=== PATIENT | male | born 1960 | race Caucasian/White ===

== ENCOUNTER → 2019-05-09 | Outpatient (CLI) | payer OTHER | END | disposition home or self-care (01) | LOC: LAB 14:45 → LAB SHORT 14:45 | DX: J32.8 Other chronic sinusitis (principal); M86.68 Other chronic osteomyelitis, other site | CPT/HCPCS: 87070; 87075; 87076; 87185; 87205 ==

== ENCOUNTER → 2019-11-12 | Outpatient (CLI) | payer OTHER ==
[2019-11-12 12:50] LABS: Hematocrit 43.1 % (37.0-53.0); Mean Corpuscular HGB 31.3 pg (26.0-34.0); Mean Corpuscular HGB Conc 32.5 g/dL (31.5-36.5); Mean Corpuscular Volume 96 fL (80-100); Mean Platelet Volume 9.8 fL (9.1-12.4); Platelet Count 282 K/mm3 (150-400); RDW Coefficient Variation 13.6 % (11.7-14.2); RDW Standard Deviation 48.5 fL (35.1-46.3); Red Blood Cell Count 4.47 M/mm3 (4.30-5.90)
[2019-11-12 13:05] LABS: Alanine Aminotransfer (ALT/SGP 35 U/L (12-78); Albumin, Blood 3.8 g/dL (3.4-5.0); Albumin/Globulin Ratio 1.1 (0.8-1.8); Alk Phos 216 U/L (50-136); Anion Gap 5 mmol/L (6-16); Aspartate Aminotrans (AST/SGOT 23 U/L (12-37); Bilirubin, Total 0.3 mg/dL (0.1-1.0); Blood Urea Nitrogen 11 mg/dL (8-24); Bun/Creatinine Ratio 13.6 (12.0-20.0); C-REACTIVE PROTEIN, EXT RANGE <0.290 mg/dL (0.000-0.300); CO2, Blood 28 mmol/L (21-32); Chloride, Blood 105 mmol/L (98-108); Creatinine, Blood 0.81 mg/dL (0.60-1.20); Globulin, Blood 3.6 g/dL (2.2-4.0); Glomerular Filtration Rate >60 (60-); Glucose, Blood 110 mg/dL (70-99); Potassium, Blood 3.6 mmol/L (3.5-5.5); Sodium, Blood 138 mmol/L (136-145); Total Protein, Blood 7.4 g/dL (6.4-8.2)
== END | disposition home or self-care (01) ==
LOC: LAB SHORT 12:35 → LAB 12:35
PROVIDERS: Family Medicine
DX: Z48.813 Encounter for surgical aftercare following surgery on the respiratory system (principal); J34.1 Cyst and mucocele of nose and nasal sinus; B96.89 Other specified bacterial agents as the cause of diseases classified elsewhere
CPT/HCPCS: 80053; 85027; 86140

== ENCOUNTER 2020-02-28 10:57 | Day surgery (SDC) | payer OTHER ==
[~2020-02-28] VITALS: Ht 188 cm; Wt 113.9 kg
[~2020-02-28 10:57] MED LIST: BUPR150ER PO; GABA300 PO; LISINOPRIL-HCT1 EACH PO; ROSU10TA PO
[2020-02-28] MEDS ORDERED: AMOX875 (11:20)
--- NOTE | 2020-02-28 12:08 | NUR ---
02/28/[address] CONSULTED ABOUT LOW HR. 12- LEAD EKG ORDER. DR CORONEL READ EKG, OK TO PROCEED PER DR. CORONEL. V.O FOR 0.2 MG IV ROBINUL PRIOR TO PROCEDURE START. DR. DUARTE NOTIFIED. BOTH EZEKIEL OK TO PROCEED.
--- NOTE | 2020-02-28 13:15 | NUR ---
02/28/20 [address] CONNORS PT MOVED FROM LEFT LATERAL SIDE TO SUPINE THEN BACK TO LEFT LATERAL. VSS T/O.
== END 2020-02-28 14:30 | disposition home or self-care (01) ==
LOC: ORSCSDS 10:57
PROVIDERS: Internal Medicine Gastroenterology
PROC: 0DBM8ZX Excision of Descending Colon, Via Natural or Artificial Opening Endoscopic, Diagnostic (ICD-10-PCS; principal; 2020-02-28 13:00)
PROC: 0DBL8ZX Excision of Transverse Colon, Via Natural or Artificial Opening Endoscopic, Diagnostic (ICD-10-PCS; principal; 2020-02-28 13:00)
PROC: 0DBK8ZX Excision of Ascending Colon, Via Natural or Artificial Opening Endoscopic, Diagnostic (ICD-10-PCS; principal; 2020-02-28 13:00)
PROC: 0DBH8ZX Excision of Cecum, Via Natural or Artificial Opening Endoscopic, Diagnostic (ICD-10-PCS; principal; 2020-02-28 13:00)
DX: Z12.11 Encounter for screening for malignant neoplasm of colon (principal); D12.3 Benign neoplasm of transverse colon; D12.4 Benign neoplasm of descending colon; D12.0 Benign neoplasm of cecum; K57.30 Diverticulosis of large intestine without perforation or abscess without bleeding; K64.8 Other hemorrhoids; I10 Essential (primary) hypertension; F32.9 Major depressive disorder, single episode, unspecified; Z79.899 Other long term (current) drug therapy
CPT/HCPCS: 88305; 93005; 93010; J2704; J7040; J7120

== ENCOUNTER → 2020-08-17 | Outpatient (CLI) | payer OTHER ==
[~2020-08-17] MED LIST changes: +AMOX875
== END | disposition home or self-care (01) ==
LOC: LAB SHORT 12:49
DX: M79.672 Pain in left foot (principal)
CPT/HCPCS: 84550

== ENCOUNTER → 2022-08-26 | Outpatient (CLI) | payer OTHER ==
[~2022-08-26] MED LIST changes: +ALBU90OI; +ALLO100; +INDO50; +Tessalon200 MG
== END | disposition home or self-care (01) ==
LOC: LAB 13:20 → LAB SHORT 13:20
DX: D22.39 Melanocytic nevi of other parts of face (principal); L81.9 Disorder of pigmentation, unspecified
CPT/HCPCS: 88305

== ENCOUNTER → 2024-04-06 | Outpatient (CLI) | payer OTHER ==
[2024-04-06 10:52] LABS: BASOPHILS ABSOLUTE AUTO 0.04 K/mm3 (0.00-0.23); BASOPHILS PERCENT AUTO 0 % (0-2); EOSINOPHILS ABSOLUTE AUTO 0.26 K/mm3 (0.00-0.68); EOSINOPHILS PERCENT AUTO 1 % (0-6); Hematocrit 32.1 % (37.0-53.0); IMMATURE GRAN ABSOLUTE AUTO 0.17 K/mm3 (0.00-0.10); IMMATURE GRAN PERCENT AUTO 1 % (0-1); LYMPHOCYTES ABSOLUTE AUTO 0.32 K/mm3 (0.84-5.20); LYMPHOCYTES PERCENT AUTO 2 % (21-46); MONOCYTES PERCENT AUTO 1 % (4-13); Mean Corpuscular HGB 29.9 pg (26.0-34.0); Mean Corpuscular HGB Conc 34.3 g/dL (31.5-36.5); Mean Corpuscular Volume 87 fL (80-100); Mean Platelet Volume 8.9 fL (9.1-12.4); NEUTROPHILS ABSOLUTE AUTO 17.39 K/mm3 (1.96-9.15); NEUTROPHILS PERCENT AUTO 95 % (41-73); Platelet Count 388 K/mm3 (150-400); RDW Coefficient Variation 13.1 % (11.7-14.2); RDW Standard Deviation 41.1 fL (35.1-46.3); Red Blood Cell Count 3.68 M/mm3 (4.30-5.90); White Blood Cell Count 18.28 K/mm3 (4.00-11.30)
[2024-04-06 11:03] LABS: Albumin, Blood 2.3 g/dL (3.4-5.0); Albumin/Globulin Ratio 0.5 (0.8-1.8); Bilirubin, Total 1.1 mg/dL (0.1-1.0); Bun/Creatinine Ratio 21.1 (12.0-20.0); Calcium, Blood 8.4 mg/dL (8.5-10.1); Creatinine, Blood 1.23 mg/dL (0.60-1.20); Globulin, Blood 4.4 g/dL (2.2-4.0); Potassium, Blood 4.1 mmol/L (3.5-5.5); Total Protein, Blood 6.7 g/dL (6.4-8.2)
[2024-04-06 11:25] LABS: BAND PERCENT MAN 12 % (0-8); EOSINOPHILS ABSOLUTE MAN 0.18 K/mm3 (0.00-0.68); EOSINOPHILS PERCENT MAN 1 % (0-6); LYMPHOCYTES ABSOLUTE MAN 0.18 K/mm3 (0.84-5.20); LYMPHOCYTES PERCENT MAN 1 % (21-46); MONOCYTES ABSOLUTE MAN 0.18 K/mm3 (0.16-1.47); MONOCYTES PERCENT MAN 1 % (4-13); NEUTROPHILS ABSOLUTE MAN 17.73 K/mm3 (1.96-9.15); SEG NEUTROPHILS PERCENT MAN 85 % (41-73)
== END | disposition home or self-care (01) ==
LOC: LAB 10:46 → LAB SHORT 10:46
PROVIDERS: Chiropractor
DX: J40 Bronchitis, not specified as acute or chronic (principal)
CPT/HCPCS: 80053; 83735; 84484; 85025

== ENCOUNTER → 2024-04-07 | Outpatient (CLI) | payer OTHER ==
[2024-04-07 10:59] LABS: BASOPHILS ABSOLUTE AUTO 0.02 K/mm3 (0.00-0.23); BASOPHILS PERCENT AUTO 0 % (0-2); EOSINOPHILS PERCENT AUTO 2 % (0-6); Hematocrit 34.4 % (37.0-53.0); Hemoglobin 11.5 g/dL (13.5-17.5); IMMATURE GRAN ABSOLUTE AUTO 0.09 K/mm3 (0.00-0.10); IMMATURE GRAN PERCENT AUTO 1 % (0-1); LYMPHOCYTES ABSOLUTE AUTO 0.38 K/mm3 (0.84-5.20); LYMPHOCYTES PERCENT AUTO 5 % (21-46); MONOCYTES ABSOLUTE AUTO 0.18 K/mm3 (0.16-1.47); MONOCYTES PERCENT AUTO 2 % (4-13); Mean Corpuscular HGB 29.6 pg (26.0-34.0); Mean Corpuscular HGB Conc 33.4 g/dL (31.5-36.5); Mean Corpuscular Volume 88 fL (80-100); Mean Platelet Volume 8.5 fL (9.1-12.4); NEUTROPHILS ABSOLUTE AUTO 7.65 K/mm3 (1.96-9.15); NEUTROPHILS PERCENT AUTO 90 % (41-73); Platelet Count 373 K/mm3 (150-400); RDW Coefficient Variation 13.2 % (11.7-14.2); RDW Standard Deviation 42.4 fL (35.1-46.3); Red Blood Cell Count 3.89 M/mm3 (4.30-5.90); White Blood Cell Count 8.52 K/mm3 (4.00-11.30)
[2024-04-07 11:11] LABS: Albumin, Blood 2.4 g/dL (3.4-5.0); Albumin/Globulin Ratio 0.5 (0.8-1.8); Bilirubin, Total 0.8 mg/dL (0.1-1.0); Bun/Creatinine Ratio 17.9 (12.0-20.0); Calcium, Blood 8.1 mg/dL (8.5-10.1); Creatinine, Blood 1.23 mg/dL (0.60-1.20); Globulin, Blood 4.6 g/dL (2.2-4.0)
[2024-04-08 09:25] LABS: TOTAL CELLS COUNTED 100
== END ==
LOC: LAB SHORT 10:55 → LAB 10:55
PROVIDERS: Physician Assistant Surgical
DX: J18.9 Pneumonia, unspecified organism (principal)
CPT/HCPCS: 80053; 85025

== ENCOUNTER 2024-05-21 08:04 | Day surgery (SDC) | payer OTHER ==
[~2024-05-21] VITALS: Ht 188 cm; Wt 113.5 kg
[2024-05-21] VITALS (9 sets, daily range): BP systolic 95–117; BP diastolic 54–77
[~2024-05-21 08:04] MED LIST changes: -ALBU90OI; +ALBU90OI INH; -ALLO100; +ALLO100 PO; +BENZ100A PO; +BREYNA 80-4.510.3 GM INH; -BUPR150ER PO; +Budeprion Xl300 MG PO; +Carbamazepine200 MG PO; +CeFAZolin Sodium 2,000 MG in NS 100 ML IV SCH; -INDO50; +INDO50 PO; +LOSARTAN-HCTZ1 EACH PO; +Lactated Ringer's 1,000 ML IV SCH; +OMEP20ER PO; +PARO10 PO; +TAMS.4ER PO; -Tessalon200 MG; +VERA80 PO
[2024-05-21] MEDS ORDERED: FentaNYL Citrate 50 MCG/ML 2 ML Injection ONE (08:11)
[2024-05-21] MEDS ORDERED: Midazolam HCl 1MG / ML 2ML Vial ONE (08:11)
[2024-05-21] MEDS ORDERED: propofoL 20 ML IV ONE ×3 (08:11→08:41)
[2024-05-21] MEDS ORDERED: Bupivacaine 0.5% HCl 5 MG/ML 30MLVIAL ONE (08:29)
[2024-05-21] MEDS ORDERED: Lidocaine HCl 1% 30 ML SDV ONE (08:30)
[2024-05-21] MEDS ORDERED: Metoclopramide HCl 5MG / ML 2ML Vial ONE (09:22)
[2024-05-21] MEDS ORDERED: Dexamethasone Sod Phos 10 MG/ML 1ML VIAL ONE (09:22)
[2024-05-21] MEDS ORDERED: Ondansetron HCl 2 MG / ML 2ML Vial ONE (09:22)
[2024-05-21] MEDS ORDERED: HYDROcodone 5-APAP 325 TAB PO PRN (10:00)
--- NOTE | 2024-05-21 11:10 | NUR ---
DISCHARGE NOTE PT A&OX4, BREATHING 2LO2 VIA NC AT BASELINE, NO COMPLAINTS. PT TOLERATING PO FLUIDS AND FOOD. ICE PACK TO INCISIONS. Discharge instructions reviewed with patient. Patient verbalizes understanding. Copy given to patient to take home. Discharge instructions reviewed with patient. Patient verbalizes understanding. Copy given to patient to take home.VSS. Dressing to procedure site clean, dry, intact with no visible drainage, swelling, erythema or bruising noted.PT AWAITING RESULTS FROM BLOOD DRAW.
== END 2024-05-21 11:00 | disposition home or self-care (01) ==
LOC: ORSCMMR 08:04 → ORD 09:00 → ORSCMMR 11:00
PROVIDERS: Surgery
PROC: B543ZZA Ultrasonography of Right Jugular Veins, Guidance (ICD-10-PCS; principal; 2024-05-21 09:00)
PROC: 05HM33Z Insertion of Infusion Device into Right Internal Jugular Vein, Percutaneous Approach (ICD-10-PCS; principal; 2024-05-21 09:00)
PROC: 0JH63WZ Insertion of Totally Implantable Vascular Access Device into Chest Subcutaneous Tissue and Fascia, Percutaneous Approach (ICD-10-PCS; principal; 2024-05-21 09:00)
DX: C65.2 Malignant neoplasm of left renal pelvis (principal); D75.1 Secondary polycythemia; I10 Essential (primary) hypertension; E78.5 Hyperlipidemia, unspecified; J44.9 Chronic obstructive pulmonary disease, unspecified; K21.9 Gastro-esophageal reflux disease without esophagitis; F41.9 Anxiety disorder, unspecified; E66.9 Obesity, unspecified; Z68.32 Body mass index [BMI] 32.0-32.9, adult; Z79.899 Other long term (current) drug therapy
CPT/HCPCS: 77001; A9270; C1788; J0690; J1100; J1642; J2250; J2405; J2704; J2765; J3010; J7120

== ENCOUNTER 2024-06-04 13:22 | Emergency (ER) | payer OTHER ==
[~2024-06-04] VITALS: Ht 188 cm; Wt 108.9 kg
[~2024-06-04 13:22] MED LIST changes: -CeFAZolin Sodium 2,000 MG in NS 100 ML IV SCH; -Lactated Ringer's 1,000 ML IV SCH
[2024-06-04 15:30] VITALS: BP 102/74
[2024-06-04] MEDS ORDERED: Morphine Sulfate 4 MG/1 ML Injection IM ONE (16:10)
[2024-06-04] MEDS ORDERED: Lidocaine 4% 1 Patch TOP ONE (16:10)
[2024-06-04] MEDS ORDERED: Acetaminophen 500 MG Tab PO ONE (16:10)
[2024-06-04] MEDS ORDERED: Ketorolac Tromethamine 15mg Vial IM ONE (16:10)
[2024-06-04] MEDS ORDERED: LIDO700A20 TOP (16:48)
[2024-06-04] MEDS ORDERED: ACET500 PO (16:48)
[2024-06-04] MEDS ORDERED: IBUP600 PO (16:48)
[2024-06-04] MEDS ORDERED: OXYACE7.5T PO (16:48)
== END 2024-06-04 17:23 | disposition home or self-care (01) ==
LOC: ER 13:22
DX: S22.32XA Fracture of one rib, left side, initial encounter for closed fracture (principal); C78.00 Secondary malignant neoplasm of unspecified lung; I10 Essential (primary) hypertension; Z87.891 Personal history of nicotine dependence; Z79.899 Other long term (current) drug therapy; Z99.81 Dependence on supplemental oxygen; W19.XXXA Unspecified fall, initial encounter
CPT/HCPCS: 71101; 96372; 99284-25; A9270; J1885; J2270

== ENCOUNTER 2024-06-25 22:23 | Observation (INO) | payer OTHER ==
[~2024-06-25] VITALS: Ht 182.9 cm; Wt 113.4 kg
[~2024-06-25 22:23] MED LIST changes: +ACET500 PO; +IBUP600 PO; +LIDO700A20 TOP; +OXYACE7.5T PO
[2024-06-25 22:52] LABS: PCO2 Arterial 30.3 mmHg (35-45); PO2 Arterial 55.4 mmHg (80-100); pH Blood Arterial 7.54 (7.35-7.45)
[2024-06-25] MEDS ORDERED: Ondansetron HCl 2 MG / ML 2ML Vial ONE (22:52)
[2024-06-25] MEDS ORDERED: NS 1,000 ML IV ONE (22:52)
[2024-06-25 23:00] LABS: Hematocrit 26.9 % (37.0-53.0); Hemoglobin 8.9 g/dL (13.5-17.5); Mean Corpuscular HGB Conc 33.1 g/dL (31.5-36.5); Mean Corpuscular Volume 91 fL (80-100); Mean Platelet Volume 9.3 fL (9.1-12.4); Platelet Count 314 K/mm3 (150-400); RDW Coefficient Variation 17.3 % (11.7-14.2); RDW Standard Deviation 57.1 fL (35.1-46.3); Red Blood Cell Count 2.97 M/mm3 (4.30-5.90); White Blood Cell Count 40.37 K/mm3 (4.00-11.30)
[2024-06-25] MEDS ORDERED: FentaNYL Citrate 50 MCG/ML 2 ML Injection IV ONE (23:00)
[2024-06-25] MEDS ORDERED: NS 1,000 ML IV SCH (23:00)
[2024-06-25] MEDS ORDERED: Ondansetron HCl 2 MG / ML 2ML Vial IV ONE (23:00)
[2024-06-25 23:24] LABS: Albumin, Blood 1.4 g/dL (3.4-5.0); Albumin/Globulin Ratio 0.4 (0.8-1.8); Bilirubin, Total 0.7 mg/dL (0.1-1.0); Bun/Creatinine Ratio 29.2 (12.0-20.0); Calcium, Blood 9.6 mg/dL (8.5-10.1); Creatinine, Blood 0.89 mg/dL (0.60-1.20); Globulin, Blood 3.4 g/dL (2.2-4.0); Magnesium, Blood 1.2 mg/dL (1.6-2.4); Potassium, Blood 3.8 mmol/L (3.5-5.5); Total Protein, Blood 4.8 g/dL (6.4-8.2)
[2024-06-25 23:33] LABS: BAND PERCENT MAN 6 % (0-8); BASOPHILS PERCENT MAN 0 % (0-2); EOSINOPHILS PERCENT MAN 1 % (0-6); LYMPHOCYTES PERCENT MAN 2 % (21-46); MONOCYTES ABSOLUTE MAN 2.01 K/mm3 (0.16-1.47); MONOCYTES PERCENT MAN 5 % (4-13); MYELOCYTE PERCENT MAN 1 % (0-0); NEUTROPHILS ABSOLUTE MAN 36.73 K/mm3 (1.96-9.15); SEG NEUTROPHILS PERCENT MAN 85 % (41-73); TOTAL CELLS COUNTED 100
[2024-06-25] MEDS ORDERED: FLU VACC TS2024-25(6MOS UP)/PF 45 MCG/0.5 ML SYRINGE IM ONE (23:50)
[2024-06-25] MEDS ORDERED: Ondansetron HCl 2 MG / ML 2ML Vial IV PRN (23:50)
[2024-06-25] MEDS ORDERED: Acetaminophen 325 MG TABLET PO PRN (23:50)
[2024-06-25] MEDS ORDERED: Atropine Sulfate 1% Opth Soln 2ML BTL SL PRN (23:50)
[2024-06-25] MEDS ORDERED: Morphine Sulfate 20 MG/1ML 1 ML Oral Syringe SL PRN (23:50)
[2024-06-26 01:30] VITALS: BP 93/53
--- NOTE | 2024-06-26 02:46 | NUR ---
ADMIT NOTE PATIENT IS ADMITTED FROM ED. PATIENT TRANSFERRED TO ROOM BED. RT SET UP AIRVO 50L 71%FIO2 SATTING ABOVE 95%
--- NOTE | 2024-06-26 05:13 | NUR ---
COMFORT CARE SHIFT SUMMARY PATIENT IS ALERT AND ORIENTED X2. PATIENT HAS HAD NO ACUTE EVENTS THIS SHIFT. PATIENT HAS NO COMPLAINTS OF PAIN, NAUSEA OR VOMITTING SINCE ADMITTANCE. PATIENT IS ON COMFORT CARE AND IS MAINTAINING O2 SATS ON AIRVO. BED IN LOCKED AND LOWEST POSITION. CALL LIGHT IN PLACE.
[2024-06-26] MEDS ORDERED: LORazepam 2 MG/ML 1ML Injection IV ONE (13:40)
[2024-06-26] MEDS ORDERED: Scopolamine Hydrobromide Patch TOP PRN (13:40)
--- NOTE | 2024-06-26 13:49 | NUR ---
PRIMARY RN REPORTS PT CONTINUES TO HAVE SX OF ANXIETY S/P ROXANOL FOR AIR HUNGER. OBTAINED VERBAL ORDER FROM PROVIDER FOR A ONE TIME IV DOSE OF LORAZEPAM FOR IMMEDIATE ANXIETY TREATMENT. PO DOSES OF LORAZEPAM ORDERED PRN GOING FORWARD. ATTEMPT TO MANAGE EOL SYMPTOMS ORALLY IN AN ATTEMPT TO D/C PT TO HOME WITH HOSPICE.
[2024-06-26] MEDS ORDERED: LORazepam 0.5 MG Tab PO PRN (13:50)
--- NOTE | 2024-06-26 17:50 | NUR ---
SUMMARY- PT AAOX1 TO SELF. PT ANXIOUS--ATIVAN IV HELPED ALLEVIATE ANXIETY THIS SHIFT. ROXANOL HELPED WITH PT'S AIR HUNGER AND PAIN. BEDREST. PT HAS MINIMAL APPETITE. PT IS DRINKING MINIMALLY.
[2024-06-26] MEDS ORDERED: LORazepam 2 MG/ML 1ML Injection IV PRN ×2 (20:25→20:50)
--- NOTE | 2024-06-27 03:52 | NUR ---
COMFORT CARE SHIFT SUMMARY PATIENT IS ALERT AND ORIENTED TO SELF ONLY. PATIENT HAS HAD NO ACUTE EVENTS THIS SHIFT. PATIENT HAS BEEN MEDICATED FOR PAIN PER EMAR. PATIENT HAS BEEN MEDICATED FOR ANXIETY AND MEDICATED PER EMAR. PATIENT HAS HAD NO COMPLAINTS OF SOB, OR NAUSEA. BED IN LOCKED AND LOWEST POSITION.
--- NOTE | 2024-06-27 08:13 | NUR ---
EOL SYMPTOM MANAGEMENT FLACC SCALE 10/10. ANXIETY 8/10. OXYGEN DELIVERY, AIRVO. ACCESSORY MUSCLE BREATHING, LABORED RESPIRATIONS. EXAGERATED UPPER BODY MOVEMENTS (PRESUMABLY TO REPOSITION). NOT REDIRECTABLE OR CONSOLABLE BY VOICE. PRIMARY RN AND PREPARATORY TECHNICIAN AT BEDSIDE PREPPING FOR WELLS CATHETER INSERTION. S/P COMFORT CARE ASSESSMENT, PRIMARY RN ADMINISTERED ROXANOL, LORAZEPAM, SCOPOLAMINE AND ATROPINE. CALL PLACED TO R/T FOR OXYGEN MANAGEMENT AND TITRATION IN PREPPING FOR HOME. CALL PLACED TO [facility] CONFIRMING BIT GRINDER AVAILABILITY UPON PT ARRIVAL HOME THIS MORNING TO AVOID A GAP IN EOL CARE. AYN SMITH TO ROOM AND STATED D/C TIME OF 0900 FORM HOME WITH HOSPICE. "DIPESH"
[2024-06-27] MEDS ORDERED: LORazepam 1 MG Tab PO PRN (09:35)
--- NOTE | 2024-06-27 09:51 | NUR ---
UPON ARRIVAL OF TRANSPORT SERVICE, THIS PC RN RCV'D CALL TO REASSESS PT. BREAK RN HAD JUST ADMINISTERED ROXANOL FOR COMFORT/LABORED BREATHING. EMT'S REPORT CONCERNS OF POSSIBLE DURING TRANSPORT. SUPPLEMENTAL OXYGEN HAD BEEN REMOVED. SPO2 DROPPING TO THE 70'S. CARE TEAM REPOSITIONED PT TO HIS LEFT SIDE. SPO2 IMPROVED TO THE 90'S. R/T NOTIFIED, THEY WILL REASSESS. TELEPHONE ORDER RCV'D FROM PROVIDER FOR PO LORAZEPAM. ORDER PLACED ACCORDINGLY. PRIMARY RN UPDATED. RN TO CRUSH LORAZEPAM AND MIX WITH ROXANOL FOR SUBLINGUAL ADMINISTRATION. IF ROXANOL IS NOT NEEDED AT TIME OF LORAZEPAM ADMINISTRATION, CHRUSH LORAZEPAM, MIX WITH A FEW DROPS OF WATER AND ADMINISTER SUBLINGUAL. PRIMARY RN VERBALLY ACKNOWLEDGED RX ADMINISTRATION RECOMMENDATIONS. HOME HOSPICE D/C IS CANCELED AT THIS TIME. THIS PC RN NOTIFIED [facility]. UPDATED PT'S SISTER VIA PHONE RE: CHANGE IN PT'S STATUS. PT IT ACTIVELY TRANSITIONING TO EOL. SISTER AND MOTHER WILL BE RETURNING TO BE WITH DIPESH. MAYNOR WILL BE SEEING PT. PC TO REMAIN AVAILABLE NEEDED.
--- NOTE | 2024-06-27 11:02 | NUR ---
"Spiritual Care Visit | Comfort Care | EOL Education Upon request of the Palliative Care nurse and family, I came ot bedside, where the pt. is on comfort care and is mostly non-responsive. Pts. sister is known [facility] sheet metal worker supervisor from the [facility] and faciliated a life review. Pts. mother Hedy is also present. Listen with inerest and empathy. When the subject of EOL came up, this sheet metal worker supervisor facilitated a discussion of next steps. The family has chosen [facility] in [place] for their home services. Prayed for the Pt. The family verbalized gratitude for the spiritual care support and visit. This sheet metal worker supervisor requested that the Pts. nurse contact this sheet metal worker supervisor should the pt. decline further, or pass."
--- NOTE | 2024-06-27 16:41 | NUR ---
SUPPORTIVE VISIT: EOL ASSESSMENT THIS AFTERNOON (APX 1615). "DIPESH" IS DISPLAYING S/SX OF ACTIVELY PASSING. RESPIRATIONS HAVE WORSENED T/O THE DAY. FACE IS [place]. SKIN IS WARM TO THE TOUCH. DIAPHORETIC. AUDIBLE RHONCI NOTED FROM DOORWAY. DIFFUSE EDEMA, CAP REFILL GREATER THAN 5 SEC. LABORED, ACCESSORY MUSCLE BREATHING. RESP RATE 48/MIN. NOT REPONDING TO PHYSICAL OR VERBAL CUES. JVD NOTED. ORAL CARE PROVIDED BY MANAGER RFID, NO GAG REFLEX NOTED. COLLABORATED WITH PRIMARY RN WHOM STATED PT WAS TO D/C HOME AT 1630 WITH HOSPICE. THIS PC RN CALLED SIDEROGRAPHERANGELA TO ROOM FOR ADDITIONAL EOL ASSESMENT. THIS PC RN AND SIDEROGRAPHER CANCELED PT'S D/C HOME HE CONTINUES TO NEED HOURLY MEDICATION ADMINISTRATION FOR AIR HUNGER. GREAT PROBABLITY OF PT PASSING DURING TRANSPORT. PHONE CALL PLACED TO PT'S SISTER ABRAHAM NOTIFING HER OF DECESION TO CANCEL D/C HOME. ABRAHAM REPORTED A GREAT DEAL OF FRUSTRATION. "THIS MORNING HE WASN'T DOING VERY WELL. MY FAMILY CAME IN TO SEE DIPESH AND THE NURSE PLANNING TO SEND HIM HOME, SAID HE WAS DOING MUCH BETTER. MY MOM AND I QUESTIONED HIS IMPROVEMENT. DIPESH LOOKED SO UNCOMFORTABLE." THIS PC RN REASSURED ABRAHAM THAT DIPESH WOULD CONTINUE TO RCV CARE AT THE [facility]. CRUSHING FOREMAN THELMA NOTIFIED TRANSPORT AND [facility] SERVICE THAT PT IS NOT APPROPRIATE FOR DISCHARGING HOME [facility].
--- NOTE | 2024-06-27 18:06 | NUR ---
"Spiritual Care | EOL Met Pts. family in the hallway when we entered the room the Pt. was not breathing. Called the nursing staff in who called TOD @ 1720. Prayed w a blessing over the Pt. and family and then stayed with family at bedside and Pastoral care was given. Confirmed the choice of home that the family had chosen earlier had not changed. [facility] in [place] is still the choice. Family verbalized gratitude for the spiritual care given, and hugs were shared. Family will notify the the nurses when they are leaving the room."
--- NOTE | 2024-06-27 18:26 | NUR ---
TIME OF TWO NURSES AT BEDSIDE TO CONFIRM PATIENT WITH NO RESPIRATIONS, NO APICAL PULSE, NO PUPILARY REACTION TO LIGHT. TIME OF 1720, FAMILY AT BEDSIDE. MD NOTIFIED VIE TELEPHONE. PALLIATIVE CARE INFORMED AND AUTOMATION MACHINE OPERATOR AT BEDSIDE WITH FAMILY. [employer] COLLECTED FOR FAMILY MEMBERS. PRISCILLA PLACED THIS AM FOR COMFORT. PRN ROXANOL, ATIVAN, ATROPINE, AND SCOPALAMINE ADMINISTERED PER MAR THROUGHOUT SHIFT. PATIENT WEANED TO ROOM AIR THIS AM. [facility] IS FAMILY'S CHOICE. FAMILY REMAINS AT BEDSIDE WITH PATIENT.
--- NOTE | 2024-06-27 19:33 | NUR ---
ICE PACK APPLIED TO PT'S EYES PER DONOR [employer].
--- NOTE | 2024-06-27 20:26 | NUR ---
2013 PT LEXII WITH [facility]. FAMILY HAS ALL BELONGINGS.
== END 2024-06-27 17:20 ==
LOC: ER 22:23 → ERHOLD 22:24 → MEDS 22:24 → ENPENDDIS 06-27 11:11 → MEDS 06-27 17:20
PROVIDERS: Student in an Organized Health Care Education/Training Program; ADMIT Student in an Organized Health Care Education/Training Program
DX: R41.82 Altered mental status, unspecified (principal); Z51.5 Encounter for palliative care; J44.9 Chronic obstructive pulmonary disease, unspecified; C67.9 Malignant neoplasm of bladder, unspecified; I10 Essential (primary) hypertension; E78.5 Hyperlipidemia, unspecified; M10.9 Gout, unspecified; K21.9 Gastro-esophageal reflux disease without esophagitis; Z79.899 Other long term (current) drug therapy
CPT/HCPCS: 36600; 71045; 80053; 82140; 82803; 83605; 83735; 85025; 93005; 93010; 94760; 94762; 96374; 96375; 96376; 99285-25; A9270; G0378; J2060; J2405; J3010; J7030